=== PATIENT | female | born 2005 | race African-American/Black ===

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

== ENCOUNTER 2024-04-12 16:39 | Outpatient (REF) | payer MEDICAID, SELFPAY ==
--- OUTSIDE RECORDS SUMMARY | 2024-04-12 16:43 | XMS_ITS | Continuity of Care Document ---
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) - 04/23/23 Insomnia due to other mental disorder(Discharge Diagnosis) - 04/23/23 Discharge Disposition: Home or Self Care Attending Physician: Tatiana Moya NP Allergies, Adverse Reactions, Alerts Substance Reaction Severity Status Seasonal Unknown Unknown Active Assessment and Plan Future Appointments Immunizations Given and Recorded Vaccine Date Status Refusal Reason human papillomavirus vaccine 1 11/29/17 Recorded human papillomavirus vaccine 2 09/01/16 Recorded tetanus/diphth/pertuss (Tdap) adult/adol 3 07/15/15 Recorded meningococcal ACWY, unspecified formulat 4 07/15/15 Recorded varicella virus vaccine 5 05/30/10 Recorded varicella virus vaccine 6 05/04/05 Recorded measles/mumps/rubella virus vaccine 7 05/30/10 Rec orded measles/mumps/rubella virus vaccine 8 04/30/06 Rec orded DTaP, unspecified formulation 9 08/02/09 Recorded DTaP, unspecified formulation 10 08/24/06 Recorded DTaP, unspecified formulation 11 04 Recorded DTaP, unspecified formulation 12 04 Recorded DTaP, unspecified formulation 13 04 Recorded polio, unspecified formulation 14 05/29/08 Recorde d polio, unspecified formulation 15 02/01/07 Recorde d polio, unspecified formulation 16 04 Recorde d polio, unspecified formulation 17 04 Recorde d influenza, unspecified formulation 05/29/08 Record ed Pneumococcal Conjugate, unspecified form 18 12/21/06 Recorded Pneumococcal Conjugate, unspecified form 19 04 Recorded Pneumococcal Conjugate, unspecified form 20 04 Recorded Hep B, unspecified formulation 21 02/03/05 Recorde d Hep B, unspecified formulation 22 04 Recorde d Hep B, unspecified formulation 23 04 Recorde d Hib, unspecified formulation 04 Recorded Hib, unspecified formulation 04 Recorded Hib, unspecified formulation 04 Recorded 1Result Comment: Unit: Unknown General Scrap Worker: [employer] 2Result Comment: Unit: Unknown General Scrap Worker: [employer] 3Result Comment: Unit: Unknown General Scrap Worker: Glaxo[employer]Kline 4Result Comment: Unit: Unknown General Scrap Worker: Sanofi Pasteur 5Result Comment: Unit: Unknown General Scrap Worker: [employer] 6Result Comment: Unit: Unknown 7Result Comment: Unit: Unknown General Scrap Worker: [employer] 8Result Comment: Unit: Unknown 9Result Comment: Unit: Unknown General Scrap Worker: [employer] 10Result Comment: Unit: Unknown 11Result Comment: Unit: Unknown 12Result Comment: Unit: Unknown 13Result Comment: Unit: Unknown 14Result Comment: Unit: Unknown 15Result Comment: Unit: Unknown 16Result Comment: Unit: Unknown 17Result Comment: Unit: Unknown 18Result Comment: Unit: Unknown 19Result Comment: Unit: Unknown 20Result Comment: Unit: Unknown 21Result Comment: Unit: Unknown 22Result Comment: Unit: Unknown 23Result Comment: Unit: Unknown Medications buPROPion 100 mg/12 hours (SR) oral tablet, extended release 100 mg = 1 tab, Oral, Daily, # 30 tab, 0 Refill(s), Pharmacy: [facility] Start Date: 04/23/23 Stop Date: 05/23/23 Status: Ordered sertraline 50 mg oral tablet See Instructions, Take 1 & 1/2 tablets once daily for one week, then increase to 2 tablets oncedaily., # 53 tab, 0 Refill(s), Pharmacy: [facility] Start Date: 04/23/23 Status: Ordered Problem List Condition Confirmation Course Effective Dates Status Health St atus Informant Asthma Confirmed Active Stress at home Confirmed Active Generalized anxiety disorder Confirmed Active Bilateral hip pain Confirmed Active Insomnia secondary to anxiety Confirmed Active Mood disorder Confirmed Active Bilateral knee pain Confirmed Active Major depression, recurrent Confirmed Active Vital Signs Most recent to oldest [Reference Range]: 1 Peripheral Pulse Rate [60-100 bpm] 73 bp m (04/23/23 2:15 PM) Blood Pressure [90-140/60-90 mmHg] 124/9 2mmHg (04/23/23 2:15 PM) Weight 101.70 kg (04/23/23 2:15 PM) Weight Measured (lbs) 224.21 lb (04/23/23 2:15 PM) Weight Percentile 98.77 1 (04/23/23 2:15 PM) 1Result Comment: ^~:!Percentile Source -[facility] ^~:!Percentile Source -[facility] Social History Social History Type Response Tobacco Never tobacco user T obacco Use:. Sex Physician Outpatient Note * Tatiana Moya NP: PERFORM Event Display: Office Clinic Note Physician Authored Date: [id number] LESLI SQUIRES :2005 Age:17 years Sex:Female Visit Date:04/23/2023 Primary Care Physician: Ely Chaney APRN Chief Complaint I'm very exhausted from work and home life stuff still. History of Present Illness Lesli presents today for a behavioral health follow up appointment.?She describes feeling more sad than happy lately. Loss of interest and motivation continues. Feels this is related to increased stress. I have a lot going on that I need to figure out.?? A lot of different stressors.?Fatigue is still present during the daytime.??Naps during the day and having trouble sleeping at night. Hydroxyzine??was not helpful for sleep, so she discontinued this. Struggling most with low energyand loss of motivation. She has been taking??sertraline 75 mg in the morning.??Now car problems, its stressful??being an 17 year old. ??No panic attacks. No longer having diarrhea. Headache for the past 2 weeks. Works evenings??4-10 pm.??She is still sleeping 6-7 hours a night. Sleeps from 2 am to 8-9 am. Napping during the daytime. everyone's quitting. Passive suicidal thoughts. Denies intent or plan. ?? Has not restarted counseling. ?? Review of Symptoms Anxiety: daily Depression: daily Sleep:??See HPI? Patient??denies a history and current s/s consistent with manic and/or hypomanic episode including euphoria, reduced need for sleep, increased interest in activities, grandiosity, hyperreligiosity, and impulsivity. Patient denies signs or symptoms suggestive of psychosis. Denies history of??believing others can read or steal their thoughts. Patient denies tactile or AVH. Denies cardiac arrhythmia, liver, kidney, asthma, or thyroid disease. Denies history of concussion. Patient denies seizure-like activity or any other neurological symptoms. Denies headaches. Patient denies heat or cold intolerance. Patient denies fevers, chills or unexplained weight loss. Denies history of an eating disorder. Eating fluctuates daily. Denies history of Stroke/cerebral vascular disease Denies history of significant decrease in overall health status. Denies history of Parkinson's Disease, MS, brain injury/TBI?? Denies /planning , or ? Drug and Alcohol History Alcohol Use during the past 12 months:?2 drinks up to twice monthly Substance Use during the past 12 months:?none ?? Mental Status Examination Affect: appropriate and congruent to mood Attention/Concentration: within normal limits Cognition/Memory: intact recent and remote Appearance: Client presents with good hygiene and is casually dressed appropriate for the season. Behavior: Pleasant, cooperative??and conversant, appears without acute distress, fully oriented x 4. Psychomotor activity: No abnormal tics or tremors Presents with appropriate eye contact. Mood is calm with congruent, full-range affect. Speech is spontaneous, normal rate, appropriate??volume/tone with no problems expressing self. No abnormal thought content elicited. Thought process is logical. Thought Content: within normal limits. No evidence for auditory or visual hallucinations. Cognition appears grossly intact with appropriate attention span & concentration and average fund of knowledge. Judgment appears good. Insight appears good. Reports fleeting suicidal??thoughts, denies??intention??and/or plan.? Risk Assessment Denies history of suicide attempts, planning or attempts. Denies a history of self- harm. Denies a history of thoughts, plans, or actions related to harming others. Suicide Risk: Low Risk Basis for Risk: Reports fleeting suicidal??thoughts, denies??intention??and/or plan. Protective factors: stable housing, gainfully employed, seeks help appropriately, future-oriented, supportive relationships. Homicide Risk: Low Risk Basis for Risk: Patient denied currently having homicidal ideations, plan, and intent to harm others. The patient is not LPS holdable and is appropriate to continue treatment as an outpatient. The patient appears to be appropriate for outpatient care and there is no indication of need for emergent observation or inpatient care at??this time. The patient is aware that if SI or HI develop, they should call 911 or present to the nearest ER for psychiatric assessment. ?? Methods Used History Taking, Reflective Listening, Patient Education, Treatment Planning Physical Exam Vitals & Measurements HR:??73??(Peripheral)?? BP:??124/92?? SpO2:??98%?? WT:??98.77??(Percentile)?? WT:??101.70??kg?? Depression Screen?? PHQ 2?? PHQ 9?? MARC-7?? Little Interest - Pleasure in Activities: More than half the days Trouble Falling or Staying Asleep: Nearly every day GAD7 Nervousness: Several days Feeling Down, Depressed, Hopeless: More than half the days Feeling Tired or Little Energy: Nearly every day GAD7 Unable to Control Worry: Over half the days Initial Depression Screen Score: 4 Score Poor Appetite or Overeating: Nearly every day GAD7 Worrying Too Much: Nearly every day ?? Feeling Bad About Yourself: Nearly every day GAD7 Trouble Relaxing: Over half the days ?? Trouble Concentrating: Several days GAD7 Restlessness: Several days ?? Moving or Speaking Slowly: Not at all GAD7 Irritable: Over half the days ?? Thoughts Better Off or Hurting Self: Several days GAD7 Fear: Over half the days ?? Detailed Depression Screen Score: 14 GAD7 Problem Severity: Very difficult ?? Total Depression Screen Score: 18 GAD7 Score: 13 Assessment/Plan 1.??Major depression, recurrent??F33.9 PHQ9 initial score??was 18, today's score is 18. ??Depression symptoms??continue. Will increase sertraline from??75 mg to 100 mg once daily.??Low motivation and fatigue, start bupropion SR 100 mg. ??Continue to monitor for??hypomanic and manic symptoms.??If sertraline??is??tolerated well may continue to??increase dose up to 150 mg daily until good therapeutic response.??Reviewed with patient the??increased risk of??suicidal thoughts with??psychotropics in those under the age of 25.?? Patient to??notify office??immediately or go to ED??if suicidal thoughts develop. Medication side effects, adverse reactions, and serotonin syndrome reviewed in detail. Risks and benefits of treatment reviewed with patient.?? Follow-up appointment in 3-4 weeks??or sooner if needed. ?? Passive SI. Reviewed safety plan. Patient has SI hotline. ??Patient plans to go to ED if active SI develops. ?? Fatigue, messaged PCP regarding this, recent labs normal, no vitamin D levels checked. Recommended follow up apt with PCP. ?? Discussed counseling options. Provided phone number to [facility]. Ordered: buPROPion 100 mg/12 hours (SR) oral tablet, extended release, 100 mg = 1 tab, Oral, Daily, # 30 tab, 0 Refill(s), Pharmacy: [facility] ?? 2.??Generalized anxiety disorder??F41.1 GAD7 score??was 16, today's score is 16. Anxiety symptoms responding to??sertraline.??Increase??sertraline??from 50 to 75 mg??once daily.? Recommend??patient seek therapy.?? Discussed therapy options, including [facility], which is she familiar with the location of. Ordered: buPROPion 100 mg/12 hours (SR) oral tablet, extended release, 100 mg = 1 tab, Oral, Daily, # 30 tab, 0 Refill(s), Pharmacy: [facility] sertraline 50 mg oral tablet, See Instructions, Take 1 & 1/2 tablets once daily for one week, then increase to 2 tablets once daily., # 53 tab, 0 Refill(s), Pharmacy: [facility] ?? 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 No benefit from??hydroxyzine??25 mg. Will increase sertraline to treat anxiety. Medication side effects, adverse reactions, serotonin syndrome reviewed in detail. Risks and benefits of treatment reviewed with patient.? Advised patient to??follow up with PCP due to ongoing fatigue. Has not had vitamin D levels checked. ?? Follow up psychiatric evaluation:??35 minutes spent with patient reviewing history, current symptoms, medications and treatment plan.??20 minutes spent counseling and on sleep hygiene. Patient Instructions If you are having an emergency, call 911 or visit your local emergency room. If you are consideringhurting yourself, you can connect with a counselor immediately by calling??[phone]. Problem List/Past Medical History Ongoing Asthma Bilateral hip pain Bilateral knee pain Generalized anxiety disorder Insomnia secondary to anxiety Major depression, recurrent Mood disorder Stress at home Historical Major depressive disorder Medications buPROPion 100 mg/12 hours (SR) oral tablet, extended release, 100 mg= 1 tab, Oral, Daily sertraline 50 mg oral tablet, See Instructions Allergies Seasonal??(Unknown) Social History Alcohol Current, Beer, 1-2 times per week- Comments: drink 3 beers a week, Electronic Cigarette/Vaping Electronic Cigarette Use: Never. Substance Use Never Tobacco Never tobacco user Tobacco Use:. Family History Diabetes mellitus: Grandmother (P). Hypertension: Grandmother (P). Stroke: Grandmother (P). Family Member(s): ?? GPARENT, at age: Unknown. Cause of : Family Member(s): ?? GPARENT, at age: Unknown. Cause of : Immunizations Vaccine Date Status human papillomavirus vaccine 11/29/2017 Recorded Comments : Unit: Unknown General Scrap Worker: [employer] human papillomavirus vaccine 09/01/2016 Recorded Comments : Unit: Unknown General Scrap Worker: [employer] tetanus/diphth/pertuss (Tdap) adult/adol 07/15/2015 Recorded Comments : Unit: Unknown General Scrap Worker: GlaxoSmithKline meningococcal ACWY, unspecified formulat 07/15/2015 Recorded Comments : Unit: Unknown General Scrap Worker: Sanofi Pasteur varicella virus vaccine 05/30/2010 Recorded Comments : Unit: Unknown General Scrap Worker: [employer] measles/mumps/rubella virus vaccine 05/30/2010 Recorded Comments : Unit: Unknown General Scrap Worker: [employer]. DTaP, unspecified formulation 08/02/2009 Recorded Comments : Unit: Unknown General Scrap Worker: [email or web address] polio, unspecified formulation 05/29/2008 Recorded Comments : Unit: Unknown influenza, unspecified formulation 05/29/2008 Recorded polio, unspecified formulation 02/01/2007 Recorded Comments : Unit: Unknown Pneumococcal Conjugate, unspecified form 12/21/2006 Recorded Comments : Unit: Unknown DTaP, unspecified formulation 08/24/2006 Recorded Comments : Unit: Unknown measles/mumps/rubella virus vaccine 04/30/2006 Recorded Comments : Unit: Unknown varicella virus vaccine 05/04/2005 Recorded Comments : Unit: Unknown Hep B, unspecified formulation 02/03/2005 Recorded Comments : Unit: Unknown Hib, unspecified formulation 2004 Recorded DTaP, unspecified formulation 2004 Recorded Comments : Unit: Unknown Pneumococcal Conjugate, unspecified form 2004 Recorded Comments : Unit: Unknown polio, unspecified formulation 2004 Recorded Comments : Unit: Unknown Hib, unspecified formulation 2004 Recorded DTaP, unspecified formulation 2004 Recorded Comments : Unit: Unknown Pneumococcal Conjugate, unspecified form 2004 Recorded Comments : Unit: Unknown polio, unspecified formulation 2004 Recorded Comments : Unit: Unknown Hib, unspecified formulation 2004 Recorded DTaP, unspecified formulation 2004 Recorded Comments : Unit: Unknown Hep B, unspecified formulation 2004 Recorded Comments : Unit: Unknown Hep B, unspecified formulation 2004 Recorded Comments : Unit: Unknown Electronically Signed on 04/23/23 05:12 PM Tatiana Moya NP Patient Care team information Care Team Personnel Name: Ely Chaney APRN Position: Physician Member Role: Primary Care Physician Address: Address: [address] [place] [id number]
--- OUTSIDE RECORDS SUMMARY | 2024-04-12 16:43 | XMS_ITS | Continuity of Care Document ---
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 Role Phone Donnie ESCOTO, Steve Dunn Primary Care Physician Encounter [facility] NBR [id number] Date(s): 03/02/23 - 03/02/23 [facility] [address] [place] [address]- Encounter Diagnosis Major depression, recurrent(Discharge Diagnosis) - 03/02/23 Generalized anxiety disorder(Discharge Diagnosis) - 03/02/23 Discharge Disposition: Home or Self Care Attending Physician: Tatiana Moya NP Allergies, Adverse Reactions, Alerts Substance Reaction Severity Status Seasonal Unknown Unknown Active Functional Status 03/02/23 Other exposure to Infectious Disease Non e Immunizations Given and Recorded Vaccine Date Status [...] formulation 04 Recorded 1Result Comment: Unit: Unknown Ointment Mill Tender: Merck &Co. 2Result Comment: Unit: Unknown Ointment Mill Tender: Merck &Co. 3Result Comment: Unit: Unknown Ointment Mill Tender: GlaxoSmithKline 4Result Comment: Unit: Unknown Ointment Mill Tender: Sanofi Pasteur 5Result Comment: Unit: Unknown Ointment Mill Tender: Merck &Co. 6Result Comment: Unit: Unknown 7Result Comment: Unit: Unknown Ointment Mill Tender: Merck &Co. 8Result Comment: Unit: Unknown 9Result Comment: Unit: Unknown Ointment Mill Tender: SmithERTH Technologiesine Beecham 10Result Comment: Unit: Unknown 11Result Comment: Unit: Unknown 12Result Comment: Unit: Unknown 13Result Comment: Unit: Unknown 14Result Comment: Unit: Unknown 15Result Comment: Unit: Unknown 16Result Comment: Unit: Unknown 17Result Comment: Unit: Unknown 18Result Comment: Unit: Unknown 19Result Comment: Unit: Unknown 20Result Comment: Unit: Unknown 21Result Comment: Unit: Unknown 22Result Comment: Unit: Unknown 23Result Comment: Unit: Unknown Medications busPIRone 5 mg oral tablet 5 mg = 1 tab, Oral, TID, PRN anxiety, # 25 tab, 0 Refill(s), Pharmacy: [facility] Start Date: 02/20/23 Status: Ordered sertraline 50 mg oral tablet See Instructions, Take 1/2 tablet once daily for one week, then increase to 1 tablet once daily., #30 tab, 0 Refill(s), Pharmacy: [facility] Start Date: 03/02/23 Status: Ordered Problem List Condition Confirmation Course Effective Dates Status Health [facility] Informant Asthma Confirmed Active Stress at home Confirmed Active Generalized anxiety disorder Confirmed Active Bilateral hip pain Confirmed Active Mood disorder Confirmed Active Bilateral knee pain Confirmed Active Major depression, recurrent Confirmed Active Vital Signs Most recent to oldest [Reference Range]: 1 Peripheral Pulse Rate [60-100 bpm] 79 bp m (03/02/23 10:41 AM) Blood Pressure [90-140/60-90 mmHg] 106/6 2mmHg (03/02/23 10:41 AM) Weight 101.1 kg (03/02/23 10:41 AM) Weight Measured (lbs) 222.887 lb (03/02/23 10:41 AM) [place] Body Weight Calculated 54.7 kg (03/02/23 10:41 AM) Height 162.56 cm (03/02/23 10:41 AM) Height/Length Measured (inches) 64 inch (03/02/23 10:41 AM) BSA Measured 2.14 m2 (03/02/23 10:41 AM) Body Mass Index 38.26 kg/m2 (03/02/23 10:41 AM) Body Mass Index Percentile 98.35 1 (03/02/23 10:41 AM) Height/Length Percentile 45.87 2 (03/02/23 10:41 AM) Weight Percentile 98.72 3 (03/02/23 10:41 AM) 1Result Comment: ^~:!Percentile Source -CDC 2Result Comment: ^~:!Percentile Source -[facility] NAMED [facility] 3Result Comment: ^~:!Percentile Source -FORMER[facility] NAMED [facility] Social History Social History Type Response Tobacco Never tobacco user T obacco Use:. Sex Physician Outpatient Note * Tatiana Moya NP: PERFORM Event Display: Office Clinic Note Physician Authored Date: [id number] LESLI SQUIRES :2005 Age:17 years Sex:Female Visit Date:03/02/2023 Primary Care Physician: Steve Fields MD Chief Complaint I'm very solitario. I don't get along with people. History of Present Illness Lesli??is a??17 year old female who was referred for??a psychiatric evaluation by??MERT Gonzales at [facility]. Patient presents with symptoms of anxiety and depression. ??Depression has been??present on and off??for over a year.?? States that she rarely feels happy. ??Her mood is consistently low aswell as her energy.?I feel down and sad a lot. Feels that her self-esteem??fluctuates,??somedays??she feels better??about herself, other days feels worse, some day I look pretty and want to dress up and go out, some days I feel bad and don't want to go out. ?? Symptoms of anxiety are??present on a daily basis.?? Finds cleaning her room helps her feel more calm.?? She used to clean a lot more when she was younger, but now does not care about how it looks asmuch.?? Does notice an improvement in her mood after she has cleaned. Also has anxiety when around??other people. ??Will feel??claustrophobic when in big groups, prefers to be in groups limited to 4-5 people.?? Denies issues with anxiety when in stores.?? Does feel more anxious when she has to speak with strangers on the phone.?Has panic attacks on occasion, will become fidgety,??feels spacey,??heart racing, and sometimes??will deep breathe.?Will calm herself down??by slow breathing and counting to 3. ??These symptoms have been present for 1 and 1/2 years. ??Her home life??has been??very??hectic, is crazy at home. ??She has difficulty sleeping??due to anxious thoughts. ??Will sleep about 5 hours nightly.??I have a hard time sleeping so I'm grouchy.?? She??will avoids other people??due to the irritability and not wanting to hurt their feelings.?? Enjoys going for walks,??finds herself??hypervillengent at??times when walking,??I live in [place]??so there is a lot of drug??addicts around.? Graduated from high school in December.??Had difficulties completing tasks and focusing??while in school. ??Her grades were all right, B's and C's,??but passed everything.??She is currently working. ??States, it is all right, there is a lot of drama. ?? She is currently taking buspirone??5 mg three??times a day.?? Started this 1 week ago. ??Finds thatthis is somewhat helpful for anxiety.?? Initially had a headache however this has resolved.?? Denies additional side effects. Has not tried other psychotrophics in the past. ?? Not currently in counseling. ??Had a counselor while at school, she did not find this helpful. ? Review of Symptoms Anxiety: present daily Depression: present daily Sleep: amount of sleep varies??nightly, goes to bed at midnight then up at 8 am. Some nights will be asleep at??2 am and sleep until noon. Denies not needing sleep. Has anxious thoughts??that impact sleep, worries about the future I'm going to have to do all these things on my own.. Watches netflix before bedtime. denies a history and current s/s consistent with manic and/or hypomanic episode including euphoria,reduced need for sleep, increased interest in activities, [...] brain injury/TBI?? Denies /planning , or ? Social History Born in [place], raised in [place]. Raised by parents, two siblings, uncle living with them. Few friends, one close friend Developmental problems: difficulty focusing. Graduated on time. Childhood history of physical / emotional / psychological / sexual abuse:?none ?? Psychiatric History Went??to hospital in [facility], due to SI years ago.??Was at the ED for one day. Denies history of inpatient and/or outpatient psychiatric care. Denies history??of active suicidal intention or plan. Denies??homicidal ideation, intention and/or plan.? Family Psychiatric History Denies psychiatric history in relatives. Denies history of suicide or attempt suicide in biological relatives. ?? Drug and Alcohol History Alcohol Use during the past 12 months:?2 drinks up to twice Substance Use during the past 12 months:?none [...] Insight appears good. Reports fleeting suicidal??thoughts, denies??intention??and/or plan.??I would never do anything. Denies??homicidal ideation, intention and/or plan. ?? Risk Assessment Denies history of suicide attempts, planning or attempts. Denies a history of self- harm. Denies a history of thoughts, plans, or actions related to harming others. Suicide Risk: Low Risk Basis for Risk: Patient reports fleeting??suicidal thoughts,??denies??plan, and intent to harm self. Protective factors: stable housing, gainfully employed, seeks help appropriately, future-oriented. Homicide Risk: Low Risk Basis for Risk: [...] Treatment Planning Physical Exam Vitals & Measurements HR:??79??(Peripheral)?? BP:??106/62?? SpO2:??97%?? HT:??45.87??(Percentile)?? HT:??162.56??cm?? WT:??98.72??(Percentile)?? WT:??101.1??kg?? BMI:??98.35??(Percentile)?? BMI:??38.26?? BSA:??2.14?? General: Alert and oriented, well nourished, no acute distress?? Eye: normal conjunctiva. HENT: Normocephalic, normal hearing. Lungs:??non-labored respiration.?? Skin: no rashes. Neurologic: Awake, alert and oriented X4. Normal gait. No tremors. Mood questionnaire screening Negative ? Depression Screen?? PHQ 2?? PHQ 9?? MARC-7?? Feeling Down, Depressed, Hopeless: More than half the days Detailed Depression Screen Score: 14 GAD7 Fear: Several days Initial Depression Screen Score: 4 Score Feeling Bad About Yourself: Nearly every day GAD7 Irritable: Nearly every day Little Interest - Pleasure in Activities: More than half the days Feeling Tired or Little Energy: More than half the days GAD7 Nervousness: Over half the days ?? Moving or Speaking Slowly: Not at all GAD7 Restlessness: Over half the days ?? Poor Appetite or Overeating: More than half the days GAD7 Score: 16 ?? Thoughts Better Off or Hurting Self: Several days GAD7 Trouble Relaxing: Nearly every day ?? Total Depression Screen Score: 18 GAD7 Unable to Control Worry: Over half the days ?? Trouble Concentrating: Nearly every day GAD7 Worrying Too Much: Nearly every day ?? Trouble Falling or Staying Asleep: Nearly every day ?? Assessment/Plan 1.??Major depression, recurrent??F33.9 Mood component not evident during today's evaluation. Will monitor closely for these characteristics with initiation of an SSRI. Major depression, generalized anxiety,??and symptoms suggestive of social anxiety??and panic attacks present. ??Sertraline has good??therapeutic value??for all of these diagnoses. ??Will trial sertraline??titrating??from 25 mg to 50 mg. ??If tolerated well may increase dose as needed.?Reviewed with patient the??increased risk of??suicidal thoughts with??psychotropics in those under the age of 25.?? To??notify office??immediately or go to ED??if suicidal thoughts d evelop.??Crisis phone number provided during visit today. Medication side effects, adverse reactions, and serotonin syndrome reviewed in detail. Risks and benefits of treatment reviewed with patient.?? Follow-up appointment in 3 weeks??or sooner if needed. Ordered: sertraline 50 mg oral tablet, See Instructions, Take 1/2 tablet once daily for one week, then increase to 1 tablet once daily., # 30 tab, 0 Refill(s), Pharmacy: [facility] ?? 2.??Generalized anxiety disorder??F41.1 Begin sertraline??titration??to 50 mg??daily.?Will continue buspirone??5 mg??3 times a day.?? May discontinue if no longer needed??after starting the sertraline. ??Recommend??patient seek therapy. ?? Some symptoms suggestive of??ADD. Reevaluate??once anxiety??and depression symptoms are treated. Ordered: sertraline 50 mg oral tablet, See Instructions, Take 1/2 tablet once daily for one week, then increase to 1 tablet once daily., # 30 tab, 0 Refill(s), Pharmacy: [facility] ?? Initial psychiatric evaluation: 65 minutes spent with patient reviewing history, current symptoms, medications and treatment plan. Patient Instructions If you are having an emergency, call 911 or visit your local emergency room. If you are consideringhurting yourself, you can connect with a counselor immediately by calling??[phone]. Problem List/Past Medical History Ongoing Asthma Bilateral hip pain Bilateral knee pain Generalized anxiety disorder Major depression, recurrent Mood disorder Stress at home Historical No qualifying data Medications busPIRone 5 mg oral tablet, 5 mg= 1 tab, Oral, TID, PRN sertraline 50 mg oral tablet, See Instructions [...] vaccine 11/29/2017 Recorded Comments : Unit: Unknown Ointment Mill Tender: Merck &Co. human papillomavirus vaccine 09/01/2016 Recorded Comments : Unit: Unknown Ointment Mill Tender: Merck &Co. tetanus/diphth/pertuss (Tdap) adult/adol 07/15/2015 Recorded Comments : Unit: Unknown Ointment Mill Tender: GlaxoSmithKline meningococcal ACWY, unspecified formulat 07/15/2015 Recorded Comments : Unit: Unknown Ointment Mill Tender: Sanofi Pasteur varicella virus vaccine 05/30/2010 Recorded Comments : Unit: Unknown Ointment Mill Tender: Merck &Co. measles/mumps/rubella virus vaccine 05/30/2010 Recorded Comments : Unit: Unknown Ointment Mill Tender: Merck &Co. DTaP, unspecified formulation 08/02/2009 Recorded Comments : Unit: Unknown Ointment Mill Tender: SmithKline Beecham polio, unspecified formulation 05/29/2008 Recorded Comments : [...] Comments : Unit: Unknown Electronically Signed on 03/02/23 05:59 PM Tatiana Moya NP Patient Care team information Care Team Personnel Name: Steve Fields MD Position: Physician Member Role: Primary Care Physician Address: Address: [facility] [address] [place] [address]
--- OUTSIDE RECORDS SUMMARY | 2024-04-12 16:43 | XMS_ITS | Continuity of Care Document ---
Author Organization [facility] Address [address] [place] [address] Care Team Providers Care Director Information Security Name Role Phone Ely Chaney APRN Primary Care Physician [phone] Encounter [facility] [id number] Date(s): 04/26/23 - 04/26/23 [facility] [address] [place] [address]- [place] Discharge Disposition: Home or Self Care Attending Physician: Ely Chaney APRN Admitting Physician: Ely Chaney APRN Referring Physician: Ely Chaney APRN Allergies, Adverse Reactions, Alerts Substance Reaction Severity [...] formulation 04 Recorded 1Result Comment: Unit: Unknown Printed Forms Proofreader: Merck &Co. 2Result Comment: Unit: Unknown Printed Forms Proofreader: Merck &Co. 3Result Comment: Unit: Unknown Printed Forms Proofreader: GlaxoSmithKline 4Result Comment: Unit: Unknown Printed Forms Proofreader: Sanofi Pasteur 5Result Comment: Unit: Unknown Printed Forms Proofreader: Merck &Co. 6Result Comment: Unit: Unknown 7Result Comment: Unit: Unknown Printed Forms Proofreader: Merck &Co. 8Result Comment: Unit: Unknown 9Result Comment: Unit: Unknown Printed Forms Proofreader: SmithKline Beecham 10Result Comment: Unit: Unknown 11Result [...] Daily, # 30 tab, 0 Refill(s), Pharmacy: [facility] Start Date: 04/23/23 Stop Date: 05/23/23 Status: Ordered sertraline 50 mg oral tablet See Instructions, Take 1 & 1/2 tablets once daily for one week, then increase to 2 tablets oncedaily., # 53 tab, 0 Refill(s), Pharmacy: [facility] Start Date: 04/23/23 Status: Ordered Problem List Condition Confirmation Course Effective Dates Status Health [facility] Informant Asthma Confirmed Active Stress at home Confirmed Active Generalized anxiety disorder Confirmed Active Bilateral hip pain Confirmed Active 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 Sex Patient Care team information Care Team Personnel Name: Ely Chaney APRN Position: Physician Member Role: Primary Care Physician Address: Address: [address] [place] [id number]
--- OUTSIDE RECORDS SUMMARY | 2024-04-12 16:44 | XMS_ITS | Continuity of Care Document ---
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: [employer] 10Result Comment: Unit: Unknown 11Result Comment: Unit: Unknown 12Result Comment: Unit: Unknown 13Result Comment: Unit: Unknown 14Result Comment: Unit: Unknown 15Result Comment: Unit: Unknown 16Result Comment: Unit: Unknown 17Result Comment: Unit: Unknown 18Result Comment: Unit: Unknown 19Result Comment: Unit: Unknown 20Result Comment: Unit: Unknown 21Result Comment: Unit: Unknown 22Result Comment: Unit: Unknown 23Result Comment: Unit: Unknown Medications hydrOXYzine hydrochloride 25 mg oral tablet See Instructions, Take up to one tablet daily at bedtime as needed., # 30 tab, 0 Refill(s), Pharmacy: [facility] Start Date: 03/22/23 Status: Ordered sertraline 50 mg oral tablet See Instructions, Take 1 & 1/2 tablets once daily., # 45 tab, 0 Refill(s), Pharmacy: [facility] Start Date: 03/22/23 Status: Ordered Problem List Condition Confirmation Course Effective Dates Status Health St atus Informant Asthma Confirmed Active Stress at home Confirmed Active Generalized anxiety disorder Confirmed Active Bilateral hip pain Confirmed Active Insomnia secondary to anxiety Confirmed Active Major depressive disorder Confirmed Active Mood disorder Confirmed Active Bilateral knee pain Confirmed Active Major depression, recurrent Confirmed Active Vital Signs Most recent to oldest [Reference Range]: 1 Peripheral Pulse Rate [60-100 bpm] 76 bp m (03/22/23 2:14 PM) Blood Pressure [90-140/60-90 mmHg] 116/7 8mmHg (03/22/23 2:14 PM) Weight 100.3 kg (03/22/23 2:14 PM) Weight Measured (lbs) 221.123 lb (03/22/23 2:14 PM) Weight Percentile 98.66 1 (03/22/23 2:14 PM) 1Result Comment: ^~:!Percentile Source -[facility] Social History Social History Type Response Tobacco Never tobacco user T obacco Use:. Sex Physician Outpatient Note * Tatiana Moya NP: PERFORM Event Display: Office Clinic Note Physician Authored Date: [id number] LESLI SQUIRES :2005 Age:17 years Sex:Female Visit Date:03/22/2023 Primary Care Physician: Ely Chaney APRN Chief Complaint When I'm fustrated my heart starts pounding. History of Present Illness Lesli presents today for a follow up appointment.?Overall feeling an improvement in mood. ?? States I've been happier.??Has been taking sertraline 50 mg once daily in the morning.?? Reports that she experienced diarrhea or when adjusting the medication from 25 mg to 50 mg daily. ??States thatthis side effect is no longer present. ??Denies additional side effects including mood flattening. ??Has noticed some improvements in her mood and anxiety since starting this medication.?Prior to starting this medication experienced panic attacks. ??Feels more calm over the past??week. ??Some diarrhea initially. ??Has been going out more often.?? A friend has moved back to town,??and they havebeen spending a lot of time together.?? She finds this relationship??supportive.?? Also working??more. I've been trying to not be home. ??Continues to use breathing coping??techniques??when feelingstressed.?? Has found this helpful. ?? Continues to struggle with falling asleep at night due to anxious thoughts.??She is still sleeping 7 hours a night. ?? Has not restarted counseling. ??Had paperwork to fill out to see a counselor??in [place]??at the beginning of the summer however did not complete this paperwork.?Cannot remember the name of the counseling center. ? Review of Symptoms Anxiety: improving Depression: improving Sleep: poor onset due to anxious thoughts before bedtime.? Patient??denies a history and current s/s consistent [...] knowledge. Judgment appears good. Insight appears good. Denies??suicidal??thoughts, denies??intention??and/or plan.??I don't have this anymore. ?? Risk Assessment Denies history of suicide attempts, planning or attempts. Denies a history of self- harm. Denies a history of thoughts, plans, or actions related to harming others. Suicide Risk: Low Risk Basis for Risk: Patient denies suicidal thoughts,??denies??plan, and/or intent to harm self. Protective factors: stable [...] Treatment Planning Physical Exam Vitals & Measurements HR:??76??(Peripheral)?? BP:??116/78?? SpO2:??97%?? WT:??100.3??kg?? WT:??98.66??(Percentile)?? General: Alert and oriented, well nourished, no acute distress?? Eye: normal conjunctiva. HENT: Normocephalic, normal hearing. Lungs:??non-labored respiration.?? Skin: no rashes. Neurologic: Awake, alert and oriented X4. Normal gait. No tremors. Depression Screen?? PHQ 2?? PHQ 9?? MARC-7?? Little Interest - Pleasure in Activities: More than half the days Trouble Falling or Staying Asleep: Nearly every day GAD7 Nervousness: Several days Feeling Down, Depressed, Hopeless: More than half the days Feeling Tired or Little Energy: Several days GAD7 Unable to Control Worry: Several days Initial Depression Screen Score: 4 Score Poor Appetite or Overeating: More than half the days GAD7 Worrying Too Much: Nearly every day ?? Feeling Bad About Yourself: Nearly every day GAD7 Trouble Relaxing: Nearly every day ?? Trouble Concentrating: Several days GAD7 Restlessness: Several days ?? Moving or Speaking Slowly: Not at all GAD7 Irritable: Over half the days ?? Thoughts Better Off or Hurting Self: Not at all GAD7 Fear: Not at all ?? Detailed Depression Screen Score: 10 GAD7 Problem Severity: Somewhat difficult ?? Total Depression Screen Score: 14 GAD7 Score: 11 Assessment/Plan 1.??Major depressive disorder??F32.9 PHQ9 initial score??was 18, today's score is 14. ??Depression symptoms improving with??addition of sertraline, however?? irritability and low mood still present daily.?? Has been tolerating sertraline well. ??No SI. Will increase sertraline from??50 mg to 75 mg once daily.?? Continue to monitor for??hypomanic and manic symptoms.??If sertraline??is??tolerated well may increase dose until good thera peutic response.??Reviewed with patient the??increased risk of??suicidal thoughts with??psychotropics in those under the age of 25.?? To??notify office??immediately or go to ED??if suicidal thoughts develop. Medication side effects, adverse reactions, and serotonin syndrome reviewed in detail. Risks and benefits of treatment reviewed with patient.?? Follow-up appointment in 3-4 weeks??or sooner if needed. Ordered: hydrOXYzine hydrochloride 25 mg oral tablet, See Instructions, Take up to one tablet daily at bedtime as needed., # 30 tab, 0 Refill(s), Pharmacy: [facility] sertraline 50 mg oral tablet, See Instructions, Take 1 & 1/2 tablets once daily., # 45 tab, 0 Refill(s), Pharmacy: [facility] ?? 2.??Generalized anxiety disorder??F41.1 GAD7 score??was 16, today's score is 11. Anxiety symptoms responding to??sertraline.??Increase??sertraline??from 50 to 75 mg??once daily.?Has not been taking buspirone due to not needing this medication, will discontinue today.?Recommended??patient seek therapy.?? Discussed therapy options. En couraged patient to??contact therapist who she had been interested in seeing several months ago. Ordered: hydrOXYzine hydrochloride 25 mg oral tablet, See Instructions, Take up to one tablet daily at bedtime as needed., # 30 tab, 0 Refill(s), Pharmacy: [facility] sertraline 50 mg oral tablet, See Instructions, Take 1 & 1/2 tablets once daily., # 45 tab, 0 Refill(s), Pharmacy: [facility] ?? 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 Will trial??hydroxyzine??25 mg??at bedtime??up to once daily??as needed for sleep. Initiate . Medication side effects, adverse reactions, drowsiness precaution??reviewed in detail. Risks and benefits of treatment reviewed with patient. ??Counseling on sleep hygiene today. ?? Follow up psychiatric evaluation:??35 minutes spent with patient reviewing history, current symptoms, medications and treatment plan.??20 minutes spent counseling and on sleep hygiene. Patient Instructions If you are having an emergency, call 911 or visit your local emergency room. If you are consideringhurting yourself, you can connect with a counselor immediately by calling??[phone]. 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 human papillomavirus vaccine 09/01/2016 Recorded Comments : Unit: Unknown 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 tetanus/diphth/pertuss (Tdap) adult/adol 07/15/2015 Recorded Comments : Unit: Unknown Equity Sales Assistant: [employer]axo[employer]Kline meningococcal ACWY, unspecified formulat 07/15/2015 Recorded Comments : Unit: Unknown Equity Sales Assistant: Sanofi Pasteur varicella virus vaccine 05/30/2010 Recorded Comments : Unit: Unknown 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 measles/mumps/rubella virus vaccine 05/30/2010 Recorded Comments : Unit: Unknown 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 DTaP, unspecified formulation 08/02/2009 Recorded Comments : Unit: Unknown Equity Sales Assistant: [employer]cham polio, unspecified formulation 05/29/2008 Recorded [...] Comments : Unit: Unknown Electronically Signed on 03/22/23 02:43 PM Tatiana Moya NP Patient Care team information Care Team Personnel Name: Ely Chaney APRN Position: Physician Member Role: Primary Care Physician Address: Address: [address] [place] [id number]
== END 2024-04-12 16:40 | disposition home or self-care (01) ==
LOC: LBN 16:39
PROVIDERS: PCP Pediatrics; Visit Provider Family Medicine
DX: J03.90 Acute tonsillitis, unspecified (principal)
CPT/HCPCS: 87070

== ENCOUNTER 2024-10-02 22:34 | Outpatient (REF) | payer SELFPAY | END 2024-10-02 22:35 | disposition home or self-care (01) | LOC: LBN 22:34 | PROVIDERS: PCP Pediatrics; Visit Provider Physician Assistant Medical | DX: J02.9 Acute pharyngitis, unspecified (principal) | CPT/HCPCS: 87070 ==

== ENCOUNTER 2025-04-15 01:13 | Outpatient (CLI) | payer MEDICAID, SELFPAY ==
[2025-04-15 10:49] LABS: Abs Immature Grans 0.03 10^3/uL (0.0-0.06); HCT 34.9 % (36.0-46.0); HGB 11.3 g/dL (11.2-15.7); Immature Grans % 0.3 %; MCH 24.4 pg (27.0-33.0); MCHC 32.4 % (32.0-36.0); MCV 75 fL (80-95); MPV 10.7 fL (8.0-11.0); Platelet Count 346 10^3/uL (130-400); RBC 4.64 10^6/uL (3.93-5.22); RDW 14.4 % (11.7-14.6); RDW-SD 38.8 fL; WBC 9.42 10^3/uL (4.4-10.8)
[2025-04-15 11:10] LABS: Hemoglobin A1C 5.4 % (<5.7)
[2025-04-15 19:56] LABS: Hepatitis C Ab w Rflx HCV PCR Negative (Negative)
[2025-04-15 20:01] LABS: HIV-1/2 Ag & Ab Screen Negative (Negative)
[2025-04-16 09:22] LABS: Rubella IgG Ab (UVM) Positive (See Note)
[2025-04-17 18:11] LABS: Lab Add On Test DONE
[2025-04-17 20:17] LABS: Syphilis IgG w/Reflex Nonreactive (Nonreactive)
== END 2025-04-15 01:14 | disposition home or self-care (01) ==
LOC: LBO 01:13
PROVIDERS: PCP Pediatrics; Visit Provider Advanced Practice Midwife
DX: Z34.91 Encounter for supervision of normal pregnancy, unspecified, first trimester (principal)
CPT/HCPCS: 36415; 86787; 86803; 86850; 86900; 86901; 87340; 87389; 83020; 83036; 85025; 85660; 86762; 86780

== ENCOUNTER 2025-04-15 08:33 | Outpatient (REF) | payer MEDICAID, SELFPAY ==
[2025-04-15 11:44] LABS: Cannabinoids THC Negative (Negative); METHADONE URINE SCREEN Negative (Negative)
[2025-04-16 11:56] LABS: Fentanyl Scr w/Rfx Confirm Negative ng/mL (<1)
[2025-04-16 11:59] LABS: Chlamydia Result Negative (Negative); GC Result Negative (Negative)
== END 2025-04-15 08:34 | disposition home or self-care (01) ==
LOC: LBN 08:33
PROVIDERS: PCP Pediatrics; Visit Provider Advanced Practice Midwife
DX: Z34.91 Encounter for supervision of normal pregnancy, unspecified, first trimester (principal)
CPT/HCPCS: 80307; 80348; 87491; 87591; 87086

== ENCOUNTER 2025-05-11 21:16 | Outpatient (REF) | payer MEDICAID, SELFPAY | END 2025-05-11 21:17 | disposition home or self-care (01) | LOC: LBN 21:16 | PROVIDERS: PCP Pediatrics; Visit Provider Nurse Practitioner Family | DX: N30.01 Acute cystitis with hematuria (principal); N89.8 Other specified noninflammatory disorders of vagina | CPT/HCPCS: 87086; 87480; 87510; 87660 ==

== ENCOUNTER → 2025-06-15 02:14 | Outpatient (CLI) | payer MEDICAID, SELFPAY ==
--- NOTE | 2025-06-15 07:30 | DI.US_ITS ---
Exam(s) US OB 2-3 TRIMESTER EXAM: US OB 2-3 TRIMESTER CLINICAL HISTORY: 19 wk anatomy survey,z34.90. TECHNIQUE: Transabdominal obstetrical ultrasound performed. COMPARISON: No exams were available for comparison FINDINGS: Number of fetuses: 1 position: CEPHALIC heart rate: 168bpm Placental location: There is a grade 1 anterior placenta. The placental tip is at least 5.1 cm from the internal os. No evidence of previa. Amniotic fluid index: Amount of fluid is within normal limits. ANATOMICAL SURVEY: Within normal limits. BIOMETRIC DATA: BPD: 4.39cm, 19weeks 2days HC: 17.58cm, 20weeks 1day AC: 15.34cm, 20weeks 4days FL: 3.57cm, 21weeks 2days Cisterna magna: 5.3mm Cerebellum: 1.99cm Lateral ventricle: 0.6 cm. EFW: 374.83g, 0.8lb, 79% Composite Age: 20weeks 2days NORBERTO: 10/31/2025 Heart Rate: 168bpm ANATOMICAL SURVEY: Four-chambered heart: Unremarkable. RVOT: Unremarkable. LVOT: Unremarkable. Left-sided stomach: Unremarkable. urinary bladder: Unremarkable. Bilateral kidneys: Unremarkable. Three-vessel cord: Unremarkable. Cord insertion: Unremarkable. Posterior fossa: Unremarkable. ventricles: Unremarkable. nose/lips: Unremarkable. Palate: Unremarkable. spine: Unremarkable. Two arms and two legs: Unremarkable. IMPRESSION: 1. Single live intrauterine gestation as above. 2. Normal anatomic survey. DATA REPOSITORY:
== END ==
LOC: DI 02:14
PROVIDERS: PCP Pediatrics; Visit Provider Advanced Practice Midwife
DX: Z34.92 Encounter for supervision of normal pregnancy, unspecified, second trimester (principal)
CPT/HCPCS: 76805